=== PATIENT | male | born 2000 | race African-American/Black ===

== ENCOUNTER 2020-09-30 09:55 | Emergency (ER) | payer OTHER ==
[~2020-09-30] VITALS: Ht 180.3 cm; Wt 69.5 kg
[2020-09-30 10:00] VITALS: BP 113/74
--- NOTE | 2020-09-30 10:50 | RAD ---
XR HAND_RIGHT 3 VIEWS History: Reason: INJURED AT WORK / Spl. Instructions: / History: . Pain Technique: 3 views right hand Comparison: None. Findings: Acute fourth metacarpal oblique fracture mildly displaced. Dorsal hand soft tissue swelling. No dislo cation. Impression: 1. Acute fourth metacarpal mildly displaced fracture. Electronically signed by: Gabino Yi DO (09/30/2020 10:48 AM) [id number]
--- NOTE | 2020-09-30 10:58 | PHYS DOC ---
Past History Past Surgical History: Other Additional Past Surgical Histo: HERNIA Alcohol Use: Rarely General Adult EDM: Chief Complaint: HAND PROBLEM HPI: HPI: 20-year-old male presents with right hand pain. Patient was using a drill at work when an ache caught and yanked his hand around in an unusual fashion. He thought he noticed a prominence of the fourth metacarpal. He hoped it was just a sprain, but he still has swelling and some ecchymosis. Quite uncomfortable. He is concerned about a fracture. This was a work-related injury. Review of Systems: Review of Systems: Constitutional: Denies fever or chills Eyes: Denies change in visual acuity HENT: Denies nasal congestion or sore throat Respiratory: Denies cough or shortness of breath Cardiovascular: Denies chest pain or edema GI: Denies abdominal pain, nausea, vomiting, bloody stools or diarrhea : Denies dysuria Musculoskeletal: Right hand pain Integument: Denies rash Neurologic: Denies headache, focal weakness or sensory changes Endocrine: Denies polyuria or polydipsia Lymphatic: Denies swollen glands Psychiatric: Denies depression or anxiety Allergies: Allergies: Allergies Coded Allergies Type Severity Reaction Last Updated Verified No Known Drug Allergies 09/30/20 No Physical Exam: PE: Constitutional: Well developed, well nourished, no acute distress, non-toxic appearance. [] HENT: Normocephalic, atraumatic, bilateral external ears normal, oropharynx moist, no oral exudates, nose normal. [] Eyes: PERRLA, EOMI, conjunctiva normal, no discharge. [] Neck: Normal range of motion, no tenderness, supple, no stridor. [] Cardiovascular:Heart rate regular rhythm, no murmur [] Lungs & Thorax: Bilateral breath sounds clear to auscultation [] Abdomen: Bowel sounds normal, soft, no tenderness, no masses, no pulsatile masses. [] Skin: Warm, dry, no erythema, no rash. [] Back: No tenderness, no CVA tenderness. [] Extremities: Swelling, tenderness, ecchymosis of the right medial hand. [] Neurologic: Alert and oriented X 3, normal motor function, normal sensory function, no focal deficits noted. [] Psychologic: Affect normal, judgement normal, mood normal. [] Current Patient Data: Vital Signs: Vital Signs Date Time Temp Pulse Resp B/P (MAP) Pulse Ox O2 Delivery O2 Flow Rate FiO2 09/30/20 10:00 97.9 78 20 113/74 100 Room Air EKG: EKG: [] Radiology/Procedures: Radiology/Procedures: [] Impressions: XR HAND_RIGHT 3 VIEWS History: Reason: INJURED AT WORK / Spl. Instructions: / History: . Pain Technique: 3 views right hand Comparison: None. Findings: Acute fourth metacarpal oblique fracture mildly displaced. Dorsal hand soft tissue swelling. No dislocation. Impression: 1. Acute fourth metacarpal mildly displaced fracture. Electronically signed by: Fortino Villarreal DO (09/30/2020 10:48 AM) [id number] DICTATED AND SIGNED BY: FORTINO VILLARREAL DO DATE: 09/30/20 1046 CC: ARACELI GAMBLE DO; PCP,NO ~MTH0 0 Heart Score: C/O Chest Pain: N/A Risk Factors: Risk Factors: DM, Current or recent (<one month) smoker, HTN, HLP, family histo ry of CAD, obesity. Risk Scores: Score 0 - 3: 2.5% MACE over next 6 weeks - Discharge Home Score 4 - 6: 20.3% MACE over next 6 weeks - Admit for Clinical Observation Score 7 - 10: 72.7% MACE over next 6 weeks - Early Invasive Strategies Course & Med Decision Making: Course & Med Decision Making Pertinent Labs and Imaging studies reviewed. (See chart for details) The patient does have a fourth metacarpal fracture. We will place him in an ulnar gutter splint. I have urged him to follow-up with orthopedics as soon as possible. He is stable for discharge at this time. [] Fe Disclaimer: Fe Disclaimer: This electronic medical record was generated, in whole or in part, using a voice recognition dictation system. Departure Departure: Impression: Primary Impression: Metacarpal bone fracture Qualified Codes: S62.324A - Displaced fracture of shaft of fourth metacarpal bone, right hand, initial encounter for closed fracture Disposition: HOME / SELF CARE / HOMELESS Condition: STABLE Referrals: PCP,NO (PCP) Patient Instructions: Hand Fracture, Metacarpals, [id number] ARACELI GAMBLE DO Sep 30, 2020 10:58
== END 2020-09-30 11:25 | disposition home or self-care (01) ==
LOC: ER 09:55
DX: S62.324A Displaced fracture of shaft of fourth metacarpal bone, right hand, initial encounter for closed fracture (principal); X50.9XXA Other and unspecified overexertion or strenuous movements or postures, initial encounter; Y93.89 Activity, other specified; Y92.89 Other specified places as the place of occurrence of the external cause; Y99.8 Other external cause status
CPT/HCPCS: 29125; 73130; 99283

== ENCOUNTER 2021-04-27 02:37 | Emergency (ER) | payer BC, OTHER ==
[~2021-04-27] VITALS: Ht 180.3 cm; Wt 69.5 kg
--- NOTE | 2021-04-27 02:43 | PHYS DOC ---
Past History Past Surgical History: Other Additional Past Surgical Histo: HERNIA Alcohol Use: Rarely Adult General HPI HPI Patient is a 21-year-old male, otherwise healthy presents with laceration to the abdomen done by a piece of glass. Denies any other injuries. States he is not up-to-date on tetanus vaccinations. Review of Systems Review of Systems Review of systems otherwise unremarkable except noted in HPI Allergies Allergies Allergies Coded Allergies Type Severity Reaction Last Updated Verified No Known Drug Allergies 09/30/20 No Physical Exam Physical Exam Constitutional: Well developed, well nourished, no acute distress, non-toxic appearance. [] HENT: Normocephalic, atraumatic, Neck: Normal range of motion, no tenderness, supple, no stridor. [] Abdomen: Has a 1 cm superficial linear laceration on the lower right quadrant, bleeding controlled, no foreign bodies on inspection Skin: Warm, dry, no erythema, no rash. [] Neurologic: Alert and oriented X 3, normal motor function, normal sensory function, no focal deficits noted. [] Psychologic: Affect normal, judgement normal, mood normal. [] EKG EKG [] Radiology/Procedures Radiology/Procedures [] Heart Score C/O Chest Pain: No Risk Factors: Risk Factors: DM, Current or recent (<one month) smoker, HTN, HLP, family history of CAD, obesity. Risk Scores: Risk Factors: DM, Current or recent (<one month) smoker, HTN, HLP, family history of CAD, obesity. Course & Med Decision Making Course & Med Decision Making Patient is a 21-year-old male who presents with abdominal laceration Vital signs not concerning. Physical exam noted above. Wound cleaned extensively. Steri-Stripped and bandaged. Patient given wound care instructions and materials for home Given demonstration and instruction on wound care. Advised to follow-up with primary care physician next week to set up a follow-up. Gave return precautions to the ED. Patient grateful, verbalized understanding and agreed with plan of discharge. [] Dragon Disclaimer Dragon Disclaimer This electronic medical record was generated, in whole or in part, using a voice recognition dictation system. Departure Departure: Impression: Primary Impression: Laceration of abdominal wall Disposition: HOME / SELF CARE / HOMELESS Referrals: PCP,NO (PCP) HESHAM VIRK MD Patient Instructions: Wound Care, [id number] Additional Instructions: Thank you for coming into the emergency department tonight and allowing us to take care of you. Please read the attached information carefully to go over things we discussed. You can use Tylenol, ibuprofen and ice as needed and as tolerated as long as you are not allergic. ALEX ORTIZ MD Apr 27, 2021 02:43
[2021-04-27 02:52] VITALS: BP 160/71
[2021-04-27] MEDS ORDERED: DIPHTH,PERTUSS(ACELL),TET TOX 0.5 ML DISP.SYRIN. VAX IM ONE (02:56)
== END 2021-04-27 03:00 | disposition home or self-care (01) ==
LOC: ER 02:37
DX: S31.113A Laceration without foreign body of abdominal wall, right lower quadrant without penetration into peritoneal cavity, initial encounter (principal); W25.XXXA Contact with sharp glass, initial encounter; Y93.89 Activity, other specified; Y92.89 Other specified places as the place of occurrence of the external cause; Y99.8 Other external cause status
CPT/HCPCS: 99282